=== PATIENT | female | born 1925 | race Caucasian/White ===

== ENCOUNTER → 2016-12-13 | Outpatient (CLI) | payer MEDICARE ==
[~2016-12-13] MED LIST: ALEN70SO3 PO; CALC-151 PO; HYDR-3138 PO; IBUP200C8 PO; LUTE1CAP3 PO; MIRA50TA PO; MULT-717 PO; NAPR220C2 PO; VIT1TABL89 PO; ZOLE5INF INJ; [UNRECOGNIZED DRUG - CODE] PO
[2016-12-13 15:36] LABS: BLOOD UREA NITROGEN 27 mg/dL (7-18)
== END | disposition home or self-care (01) ==
LOC: STAR 13:09
PROVIDERS: ATTEND Orthopaedic Surgery
DX: Z01.818 Encounter for other preprocedural examination (principal); M17.11 Unilateral primary osteoarthritis, right knee
CPT/HCPCS: 36415; 80048; 81001; 85025; 87081; 87086; 93005

== ENCOUNTER 2016-12-25 13:00 | Inpatient (IN) | payer MEDICARE ==
[2016-12-13 11:30] VITALS: BP 169/80
[~2016-12-25] VITALS: Ht 157.5 cm; Wt 57.6 kg
[~2016-12-25 13:00] MED LIST changes: -HYDR-3138 PO; +HYDR-3237 PO
[2017-01-14] MEDS ORDERED: VANCOMYCIN PER PHARMACY MC STA (06:09)
[2017-01-14] MEDS ORDERED: LACTATED RINGERS 1,000 ML IV SCH (06:11)
[2017-01-14] MEDS ORDERED: LIDOCAINE 1%, 2ML ONE (06:13)
[2017-01-14] MEDS ORDERED: ROPIvacaine/PF 0.2%, 20 ML ONE (06:18)
[2017-01-14] MEDS ORDERED: KETOROLAC 60 MG/2 ML ONE (06:18)
[2017-01-14] MEDS ORDERED: TRANEXAMIC ACID 100 MG/ML, 10ML ONE (06:18)
[2017-01-14] MEDS ORDERED: EPINEPHRINE 1 MG/ML, 1ML ONE (06:19)
[2017-01-14] MEDS ORDERED: ACET-1600 PO (06:21)
[2017-01-14] MEDS ORDERED: CELE200C PO (06:21)
[2017-01-14] MEDS ORDERED: GABA-827 PO (06:21)
[2017-01-14] MEDS ORDERED: SCOPOLAMINE PATCH, 1.5MG PATCH.TD72 TD ONE (06:30)
[2017-01-14] MEDS ORDERED: LIDOCAINE 1%, 2ML SQ PRN (06:30)
[2017-01-14] MEDS ORDERED: VANCOMYCIN PMX 1GM/200ML 200 ML IV ONE (06:30)
[2017-01-14] MEDS ORDERED: PROPOFOL 10 MG/ML, 20ML ONE (07:01)
[2017-01-14] MEDS ORDERED: CEFAZOLIN 1,000 MG ONE (07:01)
[2017-01-14] MEDS ORDERED: GLYCOPYRROLATE 0.2MG/1ML ONE (07:01)
[2017-01-14] MEDS ORDERED: EPHEDRINE 50 MG/ML, 1ML ONE (07:01)
[2017-01-14] MEDS ORDERED: ONDANSETRON 2MG/ML, 2ML ONE (07:01)
[2017-01-14] MEDS ORDERED: ROCURONIUM 10 MG/ML ONE (07:01)
[2017-01-14] MEDS ORDERED: DEXAMETHASONE 4 MG/ML, 1ML ONE (07:01)
[2017-01-14] MEDS ORDERED: NEOSTIGMINE 1 MG/ML, 10ML ONE (07:01)
[2017-01-14] MEDS ORDERED: FENTANYL PF 250 MCG/5ML ONE (07:13)
[2017-01-14] MEDS ORDERED: OXYcodone 5 MG/5 ML ORAL.SOL UDC PO PRN (08:00)
[2017-01-14] MEDS ORDERED: METOPROLOL 1 MG/ML, 5ML IV PRN (08:00)
[2017-01-14] MEDS ORDERED: PROMETHAZINE 25 MG/ML, 1ML IV PRN (08:00)
[2017-01-14] MEDS ORDERED: hydrALAzine 20 MG/ML, 1ML IV PRN (08:00)
[2017-01-14] MEDS ORDERED: FENTANYL PF 100 MCG/2ML IV PRN (08:00)
[2017-01-14] MEDS ORDERED: HALOPERIDOL 5 MG/ML IV ONE (08:00)
[2017-01-14] MEDS ORDERED: HYDROmorphone 1 MG/ML, 1ML IV PRN ×2 (08:00→10:00)
[2017-01-14] MEDS ORDERED: ACETAMINOPHEN 325 MG TABLET PO PRN (08:00)
[2017-01-14] MEDS ORDERED: MORPHINE SULFATE 4 MG/ML, 1ML ONE (08:13)
[2017-01-14] MEDS ORDERED: FENTANYL PF 100 MCG/2ML ONE (09:45)
[2017-01-14] MEDS ORDERED: BISACODYL 10 MG SUPP PR PRN (10:00)
[2017-01-14] MEDS ORDERED: SENNA/DOCUSATE TABLET PO PRN (10:00)
[2017-01-14] MEDS ORDERED: MAGNESIUM HYDROXIDE 8%, 30ML UDC PO PRN (10:00)
[2017-01-14] MEDS ORDERED: ACETAMINOPHEN 650 MG/20.3 ML UDC PO PRN (10:00)
[2017-01-14] MEDS ORDERED: METOPROLOL 1 MG/ML, 5ML ONE (10:14)
[2017-01-14] MEDS ORDERED: OXYcodone 5 MG/5 ML ORAL.SOL UDC ONE (10:14)
[2017-01-14] MEDS ORDERED: hydrALAzine 20 MG/ML, 1ML ONE (10:34)
[2017-01-14 12:19] VITALS: BP 125/65
[2017-01-14] MEDS: D5%-0.45NACL+KCL 20MEQ 1,000 ML IV SCH (14:16)
[2017-01-14] MEDS: CEFAZOLIN PMX 1GM/50ML 50 ML IVPB SCH (14:34)
[2017-01-14 19:54] VITALS: BP 102/59
[2017-01-14] MEDS: HYDROcodone/APAP 5/325 TABLET PO PRN (20:16)
[2017-01-14] MEDS: DOCUSATE 100 MG CAPSULE PO SCH (20:16)
[2017-01-15] MEDS: CEFAZOLIN PMX 1GM/50ML 50 ML IVPB SCH (00:18)
[2017-01-15] MEDS: D5%-0.45NACL+KCL 20MEQ 1,000 ML IV SCH ×3 (00:43→12:16)
[2017-01-15] MEDS: HYDROcodone/APAP 5/325 TABLET PO PRN ×6 (00:45→20:38)
[2017-01-15 00:51] VITALS: BP 121/68
[2017-01-15 05:13] LABS: BLOOD UREA NITROGEN 18 mg/dL (7-18)
[2017-01-15] MEDS: ASPIRIN 325 MG TABLET EC PO SCH ×2 (06:20→18:02)
[2017-01-15 07:14] VITALS: BP 104/53
[2017-01-15] MEDS: LACTASE 9,000 UNITS TABLET PO SCH ×2 (08:17→16:25)
[2017-01-15] MEDS: CALCIUM/VITAMIN D3 250-125 TABLET PO SCH (08:17)
[2017-01-15] MEDS: MULTIVITAMINS/MINERALS TABLET PO SCH (08:17)
[2017-01-15] MEDS: DOCUSATE 100 MG CAPSULE PO SCH ×2 (08:17→20:38)
[2017-01-15] MEDS: ONDANSETRON 4 MG TABLET PO PRN ×2 (10:43→16:36)
[2017-01-15 13:34] VITALS: BP 116/66
[2017-01-15 20:19] VITALS: BP 136/60
[2017-01-16] MEDS: HYDROcodone/APAP 5/325 TABLET PO PRN ×5 (00:28→21:59)
[2017-01-16] MEDS: D5%-0.45NACL+KCL 20MEQ 1,000 ML IV SCH ×3 (00:28→19:21)
[2017-01-16 03:45] VITALS: BP 144/63
[2017-01-16] MEDS: ONDANSETRON 4 MG TABLET PO PRN ×2 (05:50→12:21)
[2017-01-16] MEDS: ASPIRIN 325 MG TABLET EC PO SCH ×2 (06:35→17:15)
[2017-01-16] MEDS: CALCIUM/VITAMIN D3 250-125 TABLET PO SCH (08:54)
[2017-01-16] MEDS: LACTASE 9,000 UNITS TABLET PO SCH ×2 (08:55→17:15)
[2017-01-16] MEDS: MULTIVITAMINS/MINERALS TABLET PO SCH (08:55)
[2017-01-16] MEDS: DOCUSATE 100 MG CAPSULE PO SCH ×2 (08:55→21:59)
[2017-01-16 09:25] VITALS: BP 139/65
[2017-01-16 12:30] VITALS: BP 129/72
[2017-01-16] MEDS ORDERED: ACETAMINOPHEN 650 MG/20.3 ML UDC PO PRN (13:10)
[2017-01-16] MEDS ORDERED: SCOPOLAMINE PATCH, 1.5MG PATCH.TD72 TD ONE (13:30)
[2017-01-16] MEDS: IBUPROFEN 200 MG TABLET PO PRN ×2 (13:48→22:00)
[2017-01-16 18:45] VITALS: BP 92/50
[2017-01-16 19:44] VITALS: BP 178/82
[2017-01-16] MEDS ORDERED: PROMETHAZINE 12.5 MG SUPP PR PRN (22:00)
[2017-01-16 23:20] VITALS: BP 187/89
[2017-01-17 00:41] VITALS: BP 175/71
[2017-01-17 04:34] VITALS: BP 165/76
[2017-01-17 04:38] VITALS: BP 161/76
[2017-01-17] MEDS: HYDROcodone/APAP 5/325 TABLET PO PRN (05:07)
[2017-01-17] MEDS: D5%-0.45NACL+KCL 20MEQ 1,000 ML IV SCH (05:16)
[2017-01-17] MEDS: CALCIUM/VITAMIN D3 250-125 TABLET PO SCH (09:48)
[2017-01-17] MEDS: ASPIRIN 325 MG TABLET EC PO SCH (09:48)
[2017-01-17] MEDS: DOCUSATE 100 MG CAPSULE PO SCH (09:48)
[2017-01-17] MEDS: LACTASE 9,000 UNITS TABLET PO SCH (09:48)
[2017-01-17] MEDS: MULTIVITAMINS/MINERALS TABLET PO SCH (09:48)
[2017-01-17] MEDS: IBUPROFEN 200 MG TABLET PO PRN ×2 (09:53→10:01)
[2017-01-17 13:09] VITALS: BP 124/70
== END 2017-01-17 16:21 | DRG 469 ==
LOC: ORIP 01-14 05:15 → 4NOR 01-14 11:11
PROVIDERS: ADMIT Orthopaedic Surgery; ATTEND Orthopaedic Surgery
PROC: 0SRC0J9 Replacement of Right Knee Joint with Synthetic Substitute, Cemented, Open Approach (ICD-10-PCS; principal; 2017-01-14 07:00)
DX: M17.11 Unilateral primary osteoarthritis, right knee (principal); E43 Unspecified severe protein-calorie malnutrition; M81.0 Age-related osteoporosis without current pathological fracture; Z88.8 Allergy status to other drugs, medicaments and biological substances
CPT/HCPCS: 36415; 80048; 82040; 85014; J0171; J0690; J1100; J1885; J2405; J2704; J2710; J2795; J3010; J3370; J3490; Q0162; C1776; J0360; J3480; J7120

== ENCOUNTER 2017-02-14 15:04 | Emergency (ER) | payer MEDICARE ==
[~2017-02-14] VITALS: Ht 160 cm; Wt 54.0 kg
[~2017-02-14 15:04] MED LIST changes: +ACET-1600 PO; +CELE200C PO; +GABA-827 PO; +HYDR-3138 PO; -HYDR-3237 PO
[2017-02-14] MEDS ORDERED: SODIUM CHLORIDE 0.9% 1,000ML IVBOLUS ONE (15:30)
[2017-02-14] MEDS ORDERED: SODIUM CHLORIDE FLUSH 10ML SYR IVF ONE (15:30)
[2017-02-14 16:26] LABS: HEMATOCRIT 33.6 % (34.6-47.8); HEMOGLOBIN 10.9 g/dL (11.7-16.4); WHITE BLOOD COUNT 10.4 x10^3/uL (3.4-10)
[2017-02-14] MEDS ORDERED: CEFTRIAXONE PMX 1GM/50ML 50 ML ONE ×2 (16:30→20:30)
[2017-02-14] MEDS ORDERED: CEFTRIAXONE PMX 1GM/50ML 50 ML IVPB ONE ×2 (16:30→20:30)
[2017-02-14 17:42] LABS: BLOOD UREA NITROGEN 17 mg/dL (7-18)
[2017-02-14 17:53] LABS: ASPARTATE AMINO TRANSFERASE 30 U/L (15-37)
[2017-02-14] MEDS ORDERED: LIDOCAINE 1%, 20ML ONE (19:08)
[2017-02-14 21:23] LABS: SYN DILUTIN 20; SYN WBC SQ COUNTED 10
[2017-02-14 22:29] VITALS: BP 169/69
== END 2017-02-14 22:44 | disposition home or self-care (01) ==
LOC: ED 16:57
DX: N30.00 Acute cystitis without hematuria (principal); M79.604 Pain in right leg; Z87.891 Personal history of nicotine dependence
CPT/HCPCS: 20610; 36415; 73564; 80053; 81001; 83605; 84145; 85025; 85651; 85810; 86141; 87040; 87070; 87077; 87086; 87186; 87205; 89050; 89060; 93005; 96361; 96365; 99285; J0696; J7030